=== PATIENT | female | born 1955 | race Caucasian/White ===

== ENCOUNTER → 2018-04-04 11:57 | Outpatient (CLI) | payer BC, SELFPAY ==
--- NOTE | 2018-04-04 12:05 | XR_ITS ---
EXAM: XR lumbar spine min 4V HISTORY: ITS.REASON: LOW BACK PAIN ORDERING PHYSICIAN: Jonny Nails MD PATIENT AGE: 62 years COMPARISON: None FINDINGS: Normal alignment. No fracture or dislocation. No lytic or blastic change. Multilevel mild degenerative disc disease is present from L1 to S1 with slight decrease in the disc spaces and minimal endplate osteophytes. Mild facet arthritic changes are present at L4-L5 and L5-S1 with mild facet sclerosis. IMPRESSION: Mild lumbar spondylosis with degenerative disc disease and facet arthritic change
== END ==
PROVIDERS: PCP Family Medicine; Visit Provider Family Medicine
DX: M54.5 Low back pain (principal)
CPT/HCPCS: 72110

== ENCOUNTER → 2020-05-19 12:05 | Outpatient (CLI) | payer BC, SELFPAY ==
[2020-05-20 17:01] LABS: Fats, Neutral Normal (.); Fats, Total Normal (.)
[2020-05-26 17:08] LABS: Pancreatic Elastase, Fecal >500 (>200)
== END ==
PROVIDERS: Visit Provider Nurse Practitioner Family
DX: R10.13 Epigastric pain (principal); R14.0 Abdominal distension (gaseous); K30 Functional dyspepsia; R63.4 Abnormal weight loss; R19.4 Change in bowel habit
CPT/HCPCS: 82656; 82705

== ENCOUNTER → 2020-06-30 12:47 | Outpatient (CLI) | payer MEDICARE, SELFPAY ==
--- NOTE | 2020-06-30 12:58 | XR_ITS ---
PROCEDURE: XR SHOULDER LT MIN 2V CLINICAL INDICATION: LT SHOULDER PAIN COMPARISON: No exams were available for comparison FINDINGS: No fracture or dislocation. No lytic or blastic change. There is normal mineralization. Minimal osteoarthritic change glenohumeral joint. No significant subacromial stenosis. Other findings:Small subcortical cyst at the base of the greater tuberosity IMPRESSION: Minimal osteoarthritic change Dictated by: John Fung MD 06/30/2020 16:27 John Fung MD in [place] 06/30/2020 16:27
== END ==
PROVIDERS: PCP Family Medicine; Visit Provider Family Medicine
DX: M25.512 Pain in left shoulder (principal)
CPT/HCPCS: 73030

== ENCOUNTER 2021-02-19 15:09 | Emergency (ER) | payer MEDICARE, SELFPAY ==
[2021-02-19] VITALS (11 sets, daily range): BP systolic 127–168; BP diastolic 62–84; PULSE 69–96; RESP 12–21; TEMP 36.8–37.1; O2SAT 97–100; BMI 20.5
--- NOTE | 2021-02-19 15:03 | ECG_ITS ---
APPROVED REPORT Exam: Resting ECG HR:81 bpm ECG Measurements Heart Rate 81 AXES RI 142 P 76 QRSd 76 QRS 36 QT 364 T 64 QTc 422 Conclusion Sinus rhythm with fusion complexes Left atrial abnormality ST abnormality, ? electrolyte issues Abnormal ECG Electronically signed by : Eliseo Nelson MD 02/20/2021 09:12:29
--- NOTE | 2021-02-19 15:19 | XR_ITS ---
PROCEDURE: XR CHEST 2V CLINICAL HISTORY: chest pain COMPARISON: No exams were available for comparison FINDINGS: The cardiomediastinal silhouette and pulmonary vascularity are within normal limits. The lungs are clear without infiltrates, suspicious nodules, or pleural effusions. There is mild wedging involving the T5 vertebral body age indeterminate with loss of height anteriorly of 30 percent. IMPRESSION: Mild wedging of T5 age indeterminate otherwise negative Dictated by: John Fung MD 02/19/2021 16:25 John Fung MD in [place] 02/19/2021 16:25
[2021-02-19 15:28] LABS: Basophils % 0.7 % (0.1-2.0); Eosinophils # 0.1 K/mm3 (0.0-0.4); Hematocrit 44.2 % (37.0-47.0); Hemoglobin 14.3 g/dL (12.2-16.2); Lymphocytes # 1.7 K/mm3 (0.7-4.5); Lymphocytes % 28.2 % (10-50); Mean Corpuscular HGB Conc 32.3 g/dL (31.8-35.4); Mean Corpuscular Hemoglobin 29.2 pg (27.0-31.2); Mean Corpuscular Volume 90.6 fl (81-99); Mean Platelet Volume 7.7 fl (7.4-10.4); Monocytes # 0.3 K/mm3 (0.1-1.0); Monocytes % 4.6 % (1.7-9.3); Neutrophils % 65.6 % (37.0-80.0); Platelet Count 260 K/mm3 (142-424); Red Blood Count 4.88 M/mm3 (4.20-5.40); Red Cell Distribution Width 12.8 % (11.5-17.5); White Blood Count 6.1 K/mm3 (4.8-10.8)
[2021-02-19 15:39] LABS: Anion Gap 14.4 mEq/L (5-15); Blood Urea Nitrogen 10 mg/dl (7-17); Calcium 9.5 mg/dl (8.4-10.2); Carbon Dioxide 28 mmol/L (22.0-30.0); Chloride 103 mmol/L (98-107); Creatinine Clearance Estimated 48 mL/min (50-200); Estimated Glomerular Filt Rate 124 ml/min (>60); GFR (African American) 150 ML/MIN (>60); Glucose 108 mg/dl (74-100); Potassium 3.4 mmoL/L (3.5-5.1); Sodium 142 mmol/L (136-145)
[2021-02-19 15:53] LABS: Troponin I < 0.01 ng/ml (0.00-0.034)
[2021-02-19 16:13] LABS: D-Dimer 0.42 ug/mL (0.0-0.5)
[2021-02-19 19:25] LABS: Troponin I < 0.01 ng/ml (0.00-0.034)
--- NOTE | 2021-02-19 20:04 | HMH.EDGENADL ---
ED Disposition Clinical Impression: Tachycardia Disposition: Home, Self-Care Condition on Discharge: Good Additional Instructions: If your condition worsens or any other concerning symptoms arise, please return to the emergency department. Otherwise, follow-up with your primary care doctor regarding any further testing as we discussed. Referrals: Jonny Nails MD [Primary Care Provider] - - Critical Care Critical Care Time: No Attestation: On 02/19/21, the high probability of a clinically significant, sudden or life threatening deterioration of the following system(s) required my full and direct attention, intervention and personal management. The time I documented below is in addition to time spent performing reported procedures but includes the following listed in this critical care notation. Medical Decision Making - Medical Records Medical records reviewed: Yes: I reviewed the patient's medical records. - Ac Inquiry Pt receiving controlled substance: No Vital Signs: 02/19/21 15:11 02/19/21 15:30 02/19/21 16:00 Temperature 98.7 F Temperature Source Oral Pulse Rate 85 70 Pulse Rate [Right Radial] 96 H Respiratory Rate 17 14 21 Blood Pressure 144/79 H 149/84 H Blood Pressure [Right Arm] 168/76 H Blood Pressure Mean 100 105 Blood Pressure Mean [Right Arm] 106 Blood Pressure Source Blood Pressure Source [Right Arm] Automatic Cuff Blood Pressure Position Blood Pressure Position [Right Arm] Supine 02 Sat by Pulse Oximetry 99 98 99 Oxygen Delivery Method Room Air 02/19/21 16:30 02/19/21 17:00 02/19/21 17:30 Temperature Temperature Source Pulse Rate 76 70 81 Pulse Rate [Right Radial] Respiratory Rate 14 14 15 Blood Pressure 135/70 160/77 H 145/75 H Blood Pressure [Right Arm] Blood Pressure Mean 97 104 98 Blood Pressure Mean [Right Arm] Blood Pressure Source Blood Pressure Source [Right Arm] Blood Pressure Position Blood Pressure Position [Right Arm] 02 Sat by Pulse Oximetry 100 100 97 Oxygen Delivery Method 02/19/21 18:00 02/19/21 18:31 02/19/21 19:00 Temperature Temperature Source Pulse Rate 87 90 89 Pulse Rate [Right Radial] Respiratory Rate 12 18 13 Blood Pressure 137/72 149/82 H 146/72 H Blood Pressure [Right Arm] Blood Pressure Mean 94 104 101 Blood Pressure Mean [Right Arm] Blood Pressure Source Blood Pressure Source [Right Arm] Blood Pressure Position Blood Pressure Position [Right Arm] 02 Sat by Pulse Oximetry 98 98 98 Oxygen Delivery Method 02/19/21 20:08 02/19/21 20:14 Temperature 98.5 F 98.2 F Temperature Source Oral Pulse Rate 86 69 Pulse Rate [Right Radial] Respiratory Rate 16 18 Blood Pressure 127/62 127/62 Blood Pressure [Right Arm] Blood Pressure Mean Blood Pressure Mean [Right Arm] Blood Pressure Source Automatic Cuff Blood Pressure Source [Right Arm] Blood Pressure Position Sitting Blood Pressure Position [Right Arm] 02 Sat by Pulse Oximetry Oxygen Delivery Method Room Air Room Air - Lab Data Lab results reviewed: Yes: I reviewed the patient's lab results. Lab Results 02/19/21 15:10: WBC 6.1, RBC 4.88, Hgb 14.3, Hct 44.2, MCV 90.6, MCH 29.2, MCHC 32.3, RDW 12.8, Plt Count 260, MPV 7.7, Neut % (Auto) 65.6, Lymph % (Auto) 28.2, [place] % (Auto) 4.6, Eos % (Auto) 1.0, Baso % (Auto) 0.7, Neut # (Auto) 4.0, Lymph # (Auto) 1.7, [place] # (Auto) 0.3, Eos # (Auto) 0.1, Baso # (Auto) 0.0 02/19/21 15:10: Sodium 142, Potassium 3.4 L, Chloride 103, Carbon Dioxide 28, Anion Gap 14.4, BUN 10, Creatinine 0.50 L, Estimated Creat Clear 48, Estimated GFR 124, Est GFR ( Amer) 150, Glucose 108 H, Calcium 9.5, Troponin I < 0.01 02/19/21 15:10: D-Dimer 0.42 02/19/21 18:45: Troponin I < 0.01 Result diagrams: 02/19/21 15:10 02/19/21 15:10 Orders (Tests/Meds): ED MEDICATIONS Discontinued Medications Generic Name Dose Route Start Last Admin Trade Name Freq PRN
== END 2021-02-19 20:16 | disposition home or self-care (01) ==
PROVIDERS: Emergency Provider Emergency Medicine; PCP Family Medicine
DX: R00.0 Tachycardia, unspecified (principal); R07.9 Chest pain, unspecified; F41.8 Other specified anxiety disorders
CPT/HCPCS: 36415; 71046; 80048; 84484; 85025; 85378; 93005; 99283

== ENCOUNTER → 2022-01-18 16:25 | Outpatient (CLI) | payer MEDICARE, SELFPAY ==
--- NOTE | 2022-01-18 16:29 | XR_ITS ---
PROCEDURE INFORMATION: Exam: XR Chest Exam date and time: 01/18/2022 4:32 PM Age: 66 years old Clinical indication: Cough; Additional info: Weight loss TECHNIQUE: Imaging protocol: Radiologic exam of the chest. Views: 2 views. COMPARISON: CR XR CHEST 2V 02/19/2021 3:41 PM FINDINGS: Lungs: Hyperexpansion and hyperlucency with mild diaphragmatic flattening suggesting COPD. Granulomatous calcifications in the AP window. Pulmonary vasculature grossly normal. No gross pulmonary infiltrates or edema pattern. Pleural spaces: No pleural effusion. No pneumothorax. Heart/Mediastinum: Heart size normal. No tracheal/mediastinal shift. Bones/joints: No acute osseous abnormalities are identified. Osteopenia. Chronic mild-moderate superior endplate compression deformity T5 unchanged. Chronic mild superior endplate compression deformity of T6 and T3 unchanged. IMPRESSION: 1. No acute thoracic process. 2. COPD.
== END ==
PROVIDERS: PCP Family Medicine; Visit Provider Family Medicine
DX: R63.4 Abnormal weight loss (principal)
CPT/HCPCS: 71046

== ENCOUNTER → 2022-02-04 11:54 | Outpatient (CLI) | payer MEDICARE, SELFPAY ==
[2022-02-09 03:58] LABS: Pancreatic Elastase, Fecal 500 (>200)
[2022-02-09 15:24] LABS: Fats, Neutral Normal (.); Fats, Total Increased (.)
== END ==
PROVIDERS: PCP Family Medicine; Visit Provider Nurse Practitioner Family
DX: R10.13 Epigastric pain (principal); R19.4 Change in bowel habit; R63.4 Abnormal weight loss
CPT/HCPCS: 82656; 82705

== ENCOUNTER → 2022-02-25 15:22 | Outpatient (CLI) | payer MEDICARE, SELFPAY ==
[2022-02-25 15:57] LABS: Basophils # 0.1 K/mm3 (0-0.2); Basophils % 0.8 % (0.1-2.0); Eosinophils % 0.4 % (0.1-12.0); Hematocrit 42.9 % (37.0-47.0); Hemoglobin 14.1 g/dL (12.2-16.2); Lymphocytes # 1.7 K/mm3 (0.7-4.5); Lymphocytes % 26.2 % (10-50); Mean Corpuscular Hemoglobin 28.8 pg (27.0-31.2); Mean Corpuscular Volume 87.5 fl (81-99); Mean Platelet Volume 7.8 fl (7.4-10.4); Monocytes # 0.3 K/mm3 (0.1-1.0); Monocytes % 4.4 % (1.7-9.3); Neutrophils # 4.4 K/mm3 (1.8-7.8); Neutrophils % 68.2 % (37.0-80.0); Platelet Count 312 K/mm3 (142-424); Red Cell Distribution Width 12.7 % (11.5-17.5); White Blood Count 6.4 K/mm3 (4.8-10.8)
[2022-02-25 16:04] LABS: Ammonia < 9 umol/L (9-30)
[2022-02-25 16:15] LABS: INR 1.02 (0.9-1.1)
[2022-02-25 16:41] LABS: Alanine Aminotransferase 20 U/L (12-78); Albumin Level 4.5 g/dl (3.5-5.0); Albumin/Globulin Ratio 1.8 (1.1-1.8); Alkaline Phosphatase 65 U/L (38-126); Anion Gap 14.4 mEq/L (5-15); Aspartate Amino Transferase 31 U/L (14-36); Bilirubin,Total 0.4 mg/dl (0.2-1.3); Blood Urea Nitrogen 10 mg/dl (7-17); Calcium 9.4 mg/dl (8.4-10.2); Carbon Dioxide 27 mmol/L (22.0-30.0); Chloride 104 mmol/L (98-107); Estimated Glomerular Filt Rate 100 ml/min (>60); GFR (African American) 121 ML/MIN (>60); Globulin 2.5 g/dL (1.3-3.2); Glucose 100 mg/dl (74-100); Potassium 3.4 mmoL/L (3.5-5.1); Sodium 142 mmol/L (136-145)
[2022-02-25 17:17] LABS: Iron 79 ug/dL (37-170)
[2022-02-25 17:27] LABS: Total Iron Binding Capacity 305 ug/dL (265-497)
[2022-02-25 17:54] LABS: Ferritin 22.5 ng/ml (11.1-264)
[2022-02-27 08:10] LABS: AFP, Tumor Marker 5.9 ng/mL (0.0-9.2)
== END ==
PROVIDERS: PCP Family Medicine; Visit Provider Internal Medicine Gastroenterology
DX: R10.13 Epigastric pain (principal); R63.4 Abnormal weight loss; R63.0 Anorexia; K74.00 Hepatic fibrosis, unspecified
CPT/HCPCS: 36415; 80053; 82105; 82140; 82728; 83540; 83550; 85025; 85610

== ENCOUNTER → 2022-08-08 10:30 | Outpatient (CLI) | payer MEDICARE, SELFPAY | PROVIDERS: PCP Family Medicine; Visit Provider Family Medicine | DX: R63.4 Abnormal weight loss (principal) | CPT/HCPCS: 87177 ==

== ENCOUNTER → 2022-12-27 14:30 | Outpatient (CLI) | payer MEDICARE, SELFPAY ==
--- NOTE | 2022-12-27 | US_ITS ---
FINAL REPORT CLINICAL HISTORY: RUQ PAIN FINDINGS: Sonographic images of the abdomen were obtained. The liver has an unremarkable appearance with normal echogenicity. A gallstone is identified in the [place] cap of the gallbladder. There is no evidence of biliary ductal dilatation. The common duct measures 2 mm, which is within normal limits. Limited images of the pancreas are unremarkable. The spleen size is normal. The right kidney measures 10 cm in length. The left kidney measures 10 cm in length. There is normal renal echogenicity. There is no evidence of hydronephrosis. The aorta has an unremarkable appearance. Limited images of the inferior vena cava are unremarkable. IMPRESSION: Gallstone in the [place] cap of the gallbladder. Reviewed, Interpreted and Dictated by Christopher Hunt MD Transcribed by Shawnee Peña Authenticated and [facility]
[2022-12-28 08:07] LABS: Basophils % 0.3 % (0.1-2.0); Eosinophils # 0.1 K/mm3 (0.0-0.4); Eosinophils % 0.8 % (0.1-12.0); Hematocrit 35.9 % (37.0-47.0); Hemoglobin 11.2 g/dL (12.2-16.2); Lymphocytes # 1.1 K/mm3 (0.7-4.5); Lymphocytes % 15.4 % (10-50); Mean Corpuscular HGB Conc 31.3 g/dL (31.8-35.4); Mean Corpuscular Hemoglobin 30.1 pg (27.0-31.2); Mean Corpuscular Volume 96.1 fl (81-99); Mean Platelet Volume 10.4 fl (7.4-10.4); Monocytes # 0.4 K/mm3 (0.1-1.0); Monocytes % 4.9 % (1.7-9.3); Neutrophils # 5.8 K/mm3 (1.8-7.8); Neutrophils % 78.6 % (37.0-80.0); Platelet Count 306 K/mm3 (142-424); Red Blood Count 3.73 M/mm3 (4.20-5.40); Red Cell Distribution Width 14.3 % (11.5-17.5); White Blood Count 7.3 K/mm3 (4.8-10.8)
== END ==
PROVIDERS: PCP Family Medicine; Visit Provider Family Medicine
DX: D50.9 Iron deficiency anemia, unspecified (principal); R10.11 Right upper quadrant pain
CPT/HCPCS: 36415; 76700; 85025

== ENCOUNTER → 2023-02-17 12:01 | Outpatient (CLI) | payer MEDICARE, SELFPAY ==
[2023-02-17 13:06] LABS: Occult Blood,Stool Negative (Negative)
== END ==
PROVIDERS: PCP Family Medicine; Visit Provider Internal Medicine Gastroenterology
DX: K92.2 Gastrointestinal hemorrhage, unspecified (principal); K91.89 Other postprocedural complications and disorders of digestive system
CPT/HCPCS: 82272; G0328

== ENCOUNTER 2024-02-19 13:26 | Outpatient (CLI) | payer MEDICARE, SELFPAY ==
[2024-02-19 14:23] LABS: Basophils # 0.1 K/mm3 (0-0.2); Basophils % 1.7 % (0.1-2.0); Eosinophils # 0.1 K/mm3 (0.0-0.4); Eosinophils % 1.9 % (0.1-12.0); Hemoglobin 14.7 g/dL (12.2-16.2); Lymphocytes % 18.5 % (10-50); Mean Corpuscular HGB Conc 32.7 g/dL (31.8-35.4); Mean Corpuscular Hemoglobin 29.1 pg (27.0-31.2); Mean Platelet Volume 7.3 fl (7.4-10.4); Monocytes # 0.3 K/mm3 (0.1-1.0); Monocytes % 5.4 % (1.7-9.3); Neutrophils % 72.4 % (37.0-80.0); Platelet Count 211 K/mm3 (142-424); Red Blood Count 5.06 M/mm3 (4.20-5.40); Red Cell Distribution Width 12.9 % (11.5-17.5); White Blood Count 5.6 K/mm3 (4.8-10.8)
[2024-02-19 16:25] LABS: Total Iron Binding Capacity 278 ug/dL (265-497)
[2024-02-19 16:53] LABS: Ferritin 23.7 ng/ml (11.1-264)
[2024-02-19 22:38] LABS: Iron 88 ug/dL (37-170)
== END 2024-02-19 23:59 | disposition home or self-care (01) ==
LOC: LAB 13:28
PROVIDERS: PCP Family Medicine; Visit Provider Internal Medicine Gastroenterology
DX: D64.9 Anemia, unspecified (principal); D50.9 Iron deficiency anemia, unspecified; B19.20 Unspecified viral hepatitis C without hepatic coma
CPT/HCPCS: 36415; 82728; 83540; 83550; 85025

== ENCOUNTER 2024-03-06 14:44 | Outpatient (CLI) | payer MEDICARE, SELFPAY ==
--- NOTE | 2024-03-06 14:48 | XR_ITS ---
FINAL REPORT TECHNIQUE: Bone densitometry calculations of the lumbar spine and left hip were obtained. CLINICAL HISTORY: post menopausal COMPARISON: None FINDINGS: Using L1-4, the bone mineral density of the spine is 1.053 g/cm2, corresponding to T-score of 0.1. Using the left hip, the bone mineral density of the femoral neck is 0.555 g/cm2, corresponding to a T-score of -2.6. Using the right hip, the bone mineral density of the femoral neck is 0.640 g/cm?, corresponding to a T-score of -1.9. NOTE: T-score: Standard deviation compared with peak bone mass of young adult mean. *Following the recommendations of the International Society of Bone Densitometry, classification of hip BMD is based on the lower of two T-scores; total hip or femoral neck. IMPRESSION: Osteoporosis: Lowest T-score is at or below -2.5. This patient's T-score meets the World Health Organization criteria for osteoporosis. The T-score of the lumbar spine is within normal limits, however this may be falsely elevated by changes of bony sclerosis. Reviewed, Interpreted and Dictated by Antony Iglesias III, MD Transcribed by Rukhsana Álvarez Authenticated and . [facility]
== END 2024-03-06 23:59 | disposition home or self-care (01) ==
LOC: RAD 14:45
PROVIDERS: PCP Family Medicine; Visit Provider Family Medicine
DX: M81.0 Age-related osteoporosis without current pathological fracture (principal); Z13.820 Encounter for screening for osteoporosis
CPT/HCPCS: 77080

== ENCOUNTER 2024-08-09 13:21 | Outpatient (CLI) | payer MEDICARE, SELFPAY ==
--- OUTSIDE RECORDS SUMMARY | 2024-08-09 13:23 | XMS_ITS ---
Laboratory report Created on: July 31, 2024 JIMMY MACKEY : 1955 Sex: Female Author Name SUNNY COREAS Organization Unknown PROBLEMS Problems List Code Description R53.82 RESULTS Laboratory Orders Date Order Code Test 2024-07-24 [id number] CMP14+FE+CBC/D/P LT+TIBC+ANDIE... Laboratory Results Date LOINC Test Value Unit Reference Range Interpre tation 2024-07-24 2345-7 GLUCOSE 83 MG/DL 70-99 2024-07-24 3094-0 BUN 13 MG/DL 8-27 2024-07-24 2160-0 CREATININE .68 MG/DL 0.57-1.00 2024-07-24 73889-8 EGFR 94 ML/MIN/1.73 >59 2024-07-24 3097-3 BUN/CREATININE RATIO 19 12-2024-07-24 2951-2 SODIUM 144 MMOL/L 953-503 3244-03-26 2823-3 POTASSIUM 4.1 MMOL/L 3.5-5.2 2024-07-24 2075-0 CHLORIDE 103 MMOL/L 96-106 2024-07-24 2028-9 CARBON DIOXIDE, TOTAL 26 MMOL/L 20-29 2024-07-24 28035-7 CALCIUM 9.5 MG/DL 8.7-10.3 2024-07-24 2885-2 PROTEIN, TOTAL 6.9 G/DL 6.0-8.5 2024-07-24 1751-7 ALBUMIN 4.5 G/DL 3.9-4.9 2024-07-24 82579-3 GLOBULIN, TOTAL 2.4 G/DL 1.5-4.5 2024-07-24 1975-2 BILIRUBIN, TOTAL .3 MG/DL 0.0-1.2 2024-07-24 6768-6 ALKALINE PHOSPHATASE 71 IU/L 44-121 2024-07-24 1920-8 AST (SGOT) 25 IU/L 0-40 2024-07-24 1742-6 ALT (SGPT) 19 IU/L 0-32 2024-07-24 2500-7 IRON BINDCAP(TIBC) 251 UG/DL 504-024 3102-03-26 2501-5 UIBC 162 UG/DL 793-303 0312-03-26 2498-4 IRON 89 UG/DL 27-139 2024-07-24 2502-3 IRON SATURATION 35 % 15-55 2024-07-24 2132-9 VITAMIN B12 639 PG/ML 232-1245 2024-07-24 2284-8 FOLATE (FOLIC ACID), SERUM 16.5 NG/ML >3.0 2024-07-24 2276-4 FERRITIN 54 NG/ML 15-150 2024-07-24 6690-2 WBC 6.8 X10E3/UL 3.4-10.8 2024-07-24 789-8 RBC 4.78 X10E6/UL 3.77-5.28 2024-07-24 718-7 HEMOGLOBIN 13.6 G/DL 11.1-15.9 2024-07-24 4544-3 HEMATOCRIT 41.5 % 34.0-46.6 2024-07-24 787-2 MCV 87 FL 79-97 2024-07-24 785-6 MCH 28.5 PG 26.6-33.0 2024-07-24 786-4 MCHC 32.8 G/DL 31.5-35.7 2024-07-24 788-0 RDW 12 % 11.7-15.4 2024-07-24 777-3 PLATELETS 258 X10E3/UL 193-022 0737-03-26 770-8 NEUTROPHILS 69 % 2024-07-24 736-9 LYMPHS 24 % 2024-07-24 5905-5 MONOCYTES 6 % 2024-07-24 713-8 EOS 1 % 2024-07-24 706-2 BASOS 0 % 2024-07-24 751-8 NEUTROPHILS (ABSOLUTE) 4.6 X10E3/UL 1.4-7.0 2024-07-24 731-0 LYMPHS (ABSOLUTE) 1.6 X10E3/UL 0.7-3.1 2024-07-24 742-7 MONOCYTES(ABSOLUTE) .4 X10E3/UL 0.1-0.9 2024-07-24 711-2 EOS (ABSOLUTE) .1 X10E3/UL 0.0-0.4 2024-07-24 704-7 BASO (ABSOLUTE) 0 X10E3/UL 0.0-0.2 2024-07-24 15322-3 IMMATURE GRANULOCYTES 0 % 2024-07-24 00697-8 IMMATURE GRANS (ABS) 0 X10E3/UL 0.0-0.1
--- OUTSIDE RECORDS SUMMARY | 2024-08-09 13:23 | XMS_ITS ---
Laboratory report Created on: July 27, 2024 JIMMY MACKEY : 1955 Sex: Female Author Name SUNNY COREAS Organization Unknown PROBLEMS Problems List Code Description R53.82 RESULTS Laboratory Orders Date Order Code Test 2024-07-24 [id number] CMP14+FE+CBC/D/P LT+TIBC+ANDIE... Laboratory Results Date LOINC Test Value Unit Reference Range Interpre tation 2024-07-24 2345-7 GLUCOSE 83 MG/DL 70-99 2024-07-24 3094-0 BUN 13 MG/DL 8-2024-07-24 2160-0 CREATININE .68 MG/DL 0.57-1.00 2024-07-24 92368-7 EGFR 94 ML/MIN/1.73 >59 2024-07-24 3097-3 BUN/CREATININE RATIO 19 -2024-07-24 2951-2 SODIUM 144 MMOL/L 578-494 1660-03-26 2823-3 POTASSIUM 4.1 MMOL/L 3.5-5.2 2024-07-24 2075-0 CHLORIDE 103 MMOL/L 96-106 2024-07-24 2028-9 CARBON DIOXIDE, TOTAL 26 MMOL/L 20-29 2024-07-24 96724-0 CALCIUM 9.5 MG/DL 8.7-10.3 2024-07-24 2885-2 PROTEIN, TOTAL 6.9 G/DL 6.0-8.5 2024-07-24 1751-7 ALBUMIN 4.5 G/DL 3.9-4.9 2024-07-24 25851-1 GLOBULIN, TOTAL 2.4 G/DL 1.5-4.5 2024-07-24 1975-2 BILIRUBIN, TOTAL .3 MG/DL 0.0-1.2 2024-07-24 6768-6 ALKALINE PHOSPHATASE 71 IU/L 44-121 2024-07-24 1920-8 AST (SGOT) 25 IU/L 0-40 2024-07-24 1742-6 ALT (SGPT) 19 IU/L 0-32 2024-07-24 2500-7 IRON BINDCAP(TIBC) 251 UG/DL 533-085 1808-03-26 2501-5 UIBC 162 UG/DL 624-661 7423-03-26 2498-4 IRON 89 UG/DL 27-139 2024-07-24 2502-3 [...] % 11.7-15.4 2024-07-24 777-3 PLATELETS 258 X10E3/UL 757-797 7737-03-26 770-8 NEUTROPHILS 69 % 2024-07-24 736-9 LYMPHS 24 % 2024-07-24 5905-5 MONOCYTES 6 % 2024-07-24 713-8 EOS 1 % 2024-07-24 706-2 BASOS 0 % 2024-07-24 751-8 NEUTROPHILS (ABSOLUTE) 4.6 X10E3/UL 1.4-7.0 2024-07-24 731-0 LYMPHS (ABSOLUTE) 1.6 X10E3/UL 0.7-3.1 2024-07-24 742-7 MONOCYTES(ABSOLUTE) .4 X10E3/UL 0.1-0.9 2024-07-24 711-2 EOS (ABSOLUTE) .1 X10E3/UL 0.0-0.4 2024-07-24 704-7 BASO (ABSOLUTE) 0 X10E3/UL 0.0-0.2 2024-07-24 55680-1 IMMATURE GRANULOCYTES 0 % 2024-07-24 80231-4 IMMATURE GRANS (ABS) 0 X10E3/UL 0.0-0.1
--- OUTSIDE RECORDS SUMMARY | 2024-08-09 13:23 | XMS_ITS | Data Portability ---
Author Organization [facility] BO JaegerS SUCHES CLOSED Address [address] [place] [address] Care Team Providers Care Senior Behavioral Scientist Name Role Phone RICHIE NAILS Referring Provider Assessment No assessment recorded. Plan of Treatment Reminders Order Date Submit Date Provider Last Modified By Organization Details Last Modified Time Details Appointments None recorded. Lab pancreatic elastase, stool 2022 023 [email or web address] [facility], [address] [place] [address], [id number], 3 07:52:51 amylase, serum or plasma 2022 023 [facility], [address] [place] [address], [id number], 3 12:55:20 lipase, serum or plasma 2022 023 [facility], [address] [place] [address], [id number], 3 12:55:19 vitamin B12, serum 2022 023 [facility], [address] [place] [address], [address], 3 16:21:11 vitamin D, 25-hydroxy, total, serum 2022 023 [facility], [address] [place] [address], [address], 3 16:21:10 CK (creatine kinase), total, serum 2022 023 [facility], [address] [place] [address], [address], 3 16:11:36 ESR (erythrocyt e sedimentati on rate), blood 2022 023 [facility], [address] [place] [address], [id number], 3 16:29:50 CBC w/ auto diff 2022 023 [facility], [address] [place] [address], [address], 3 15:46:03 CMP, serum or plasma 2022 023 [facility], [address] [place] [address], [address], 3 16:11:39 lipase, serum or plasma 2022 023 [facility], [address] [place] [address], [address], 3 16:11:38 TSH, serum or plasma 2022 023 [facility], [address] [place] [address], [address], 3 16:45:03 T4, free, serum 2022 023 [facility], [address] [place] [address], [id number], 3 16:45:05 T3, total, serum 2022 023 [facility], [address] [place] [address], [address], 3 16:45:07 thyroid panel, serum 2022 023 [facility], [address] [place] [address], [address], 3 11:40:31 Referral None recorded. Procedures None recorded. Surgeries None recorded. Imaging US, abdomen, limited 2022 023 [facility], [address] [place] [address], [address], 3 13:53:12 Medication Orders duloxetine 30 mg capsule,del ayed release 2022 023 [facility][id number], [address], [id number], 3 11:16:03 dicyclomine 10 mg capsule 2022 023 [facility][id number], [address], [phone], 3 14:42:43 Patient TargetsNo targets recorded. Patient InstructionsNo instructions recorded. Reason for Referral None Reported. Results Created Date Observation Date Name Description Value Unit Range Abnormal Flag Note LastModifiedBy Organization Detail LastModifiedTime 10/26/1910/25/2022 COMPL ETE BLOOD COUNT white blood cells 8.8 10*3/ uL 3.8-10 .8 normal Not Available [facility] [address] [place] [address], [address], 10/25/2022 15:46:02 10/26/19 23 10/25/2022 COMPL ETE BLOOD COUNT red blood cells 5.12 10*6/ uL 3.80-5 .20 normal Not Available [facility] [address] [place] [address], [address], 10/25/2022 15:46:02 10/26/19 23 10/25/2022 COMPL ETE BLOOD COUNT hemoglobin 14.9 g/dL 12.0-1 6.0 normal Not Available [facility] [address] [place] [address], [address], 10/25/2022 15:46:02 10/26/19 23 10/25/2022 COMPL ETE BLOOD COUNT hematocrit 45.6 % 35.0-4 7.0 normal Not Available [facility] [address] [place] [address], [address], 10/25/2022 15:46:02 10/26/19 23 10/25/2022 COMPL ETE BLOOD COUNT MCV 89 fL 80-100 normal Not Available [facility] [address] [place] [address], [address], 10/25/2022 15:46:02 10/26/19 23 10/25/2022 COMPL ETE BLOOD COUNT MCH 29 pg 26-35 normal Not Available [facility] [address] [place] [address], [address], 10/25/2022 15:46:02 10/26/19 23 10/25/2022 COMPL ETE BLOOD COUNT MCHC 33 g/dL 32-36 normal Not Available [facility] [address] [place] [address], [address], 10/25/2022 15:46:02 10/26/19 23 10/25/2022 COMPL ETE BLOOD COUNT RDW 12.9 % 11.0-1 5.0 normal Not Available [facility] [address] [place] [address], [address], 10/25/2022 15:46:02 10/26/19 23 10/25/2022 COMPL ETE BLOOD COUNT MPV 8.0 fL 6.2-10 .5 normal Not Available [facility] [address] [place] [address], [address], 10/25/2022 15:46:02 10/26/19 23 10/25/2022 COMPL ETE BLOOD COUNT platelet count 278 10*3/ uL 130-40 0 normal Not Available [facility] [address] [place] [address], [address], 10/25/2022 15:46:02 10/26/19 23 10/25/2022 COMPL ETE BLOOD COUNT neutrophil,a bsolute 6.1 10*3/ uL 1.6-8. 4 normal Not Available [facility] [address] [place] [address], [address], 10/25/2022 15:46:02 10/26/19 23 10/25/2022 COMPL ETE BLOOD COUNT lymphocyte,a bsolute 2.1 10*3/ uL 0.4-5. 1 normal Not Available [facility] [address] [place] [address], [address], 10/25/2022 15:46:02 10/26/19 23 10/25/2022 COMPL ETE BLOOD COUNT monocyte,abs olute 0.5 10*3/ uL 0.0-1. 2 normal Not Available [facility] [address] [place] [address], [address], 10/25/2022 15:46:02 10/26/19 23 10/25/2022 COMPL ETE BLOOD COUNT eosinophil,a bsolute 0.1 10*3/ uL 0.0-0. 8 normal Not Available [facility] [address] [place] [address], [address], 10/25/2022 15:46:02 10/26/19 23 10/25/2022 COMPL ETE BLOOD COUNT basophil,abs olute 0.0 10*3/ uL 0.0-0. 3 normal Not Available [facility] [address] [place] [address], [address], 10/25/2022 15:46:02 10/26/19 23 10/25/2022 COMPL ETE BLOOD COUNT % neutrophils 69.3 % 42.0-7 8.0 normal Not Available [facility] [address] [place] [address], [address], 10/25/2022 15:46:02 10/26/19 23 10/25/2022 COMPL ETE BLOOD COUNT % lymphocytes 24.0 % 11.0-4 7.0 normal Not Available [facility] [address] [place] [address], [address], 10/25/2022 15:46:02 10/26/19 23 10/25/2022 COMPL ETE BLOOD COUNT % monocytes 5.3 % 0.0-11 .0 normal Not Available [facility] [address] [place] [address], [address], 10/25/2022 15:46:02 10/26/19 23 10/25/2022 COMPL ETE BLOOD COUNT % eosinophils 0.9 % 0.0-7. 0 normal Not Available [facility] [address] [place] [address], [address], 10/25/2022 15:46:02 10/26/19 23 10/25/2022 COMPL ETE BLOOD COUNT % basophils 0.5 % 0.0-3. 0 normal Not Available [facility] [address] [place] [address], [address], 10/25/2022 15:46:02 10/26/19 23 10/25/2022 COMPL ETE BLOOD COUNT nucleated red cells 0.1 % 0.0-0. 9 normal Not Available [facility] [address] [place] [address], [address], 10/25/2022 15:46:02 10/26/19 23 10/25/2022 COMPL ETE BLOOD COUNT nucleated RBCs, absolute 0.01 10*3/ uL not estab. normal Not Available [facility] [address] [place] [address], [address], 10/25/2022 15:46:02 10/26/19 23 10/25/2022 CREAT INE KINAS E creatine kinase 53 U/L 0-169 normal Not Available [facility] [address] [place] [address], [address], 10/25/2022 16:11:36 10/26/19 23 10/25/2022 LIPAS E lipase 67 U/L 13-60 high Not Available [facility] [address] [place] [address], [address], 10/25/2022 16:11:38 10/26/19 23 10/25/2022 COMP. METAB OLIC PANEL glucose 105 mg/dL 74-100 high Not Available [facility] [address] [place] [address], [address], 10/25/2022 16:11:39 10/26/19 23 10/25/2022 COMP. METAB OLIC PANEL blood urea nitrogen 14 mg/dL 6-20 normal Not Available [facility] [address] [place] [address], [address], 10/25/2022 16:11:39 10/26/19 23 10/25/2022 COMP. METAB OLIC PANEL creatinine 0.73 mg/dL 0.50-0 .95 normal Not Available [facility] [address] [place] [address], [address], 10/25/2022 16:11:39 10/26/19 23 10/25/2022 COMP. METAB OLIC PANEL BUN/creatini ne ratio 19 (calc ) 10-20 normal Not Available [facility] [address] [place] [address], [address], 10/25/2022 16:11:39 10/26/19 23 10/25/2022 COMP. METAB OLIC PANEL sodium 143 mmol/ L 136-14 5 normal Not Available [facility] [address] [place] [address], [address], 10/25/2022 16:11:39 10/26/19 23 10/25/2022 COMP. METAB OLIC PANEL potassium 4.2 mmol/ L 3.4-5. 0 normal Not Available [facility] [address] [place] [address], [address], 10/25/2022 16:11:39 10/26/19 23 10/25/2022 COMP. METAB OLIC PANEL chloride 105 mmol/ L 98-107 normal Not Available [facility] [address] [place] [address], [address], 10/25/2022 16:11:39 10/26/19 23 10/25/2022 COMP. METAB OLIC PANEL carbon dioxide 25 mmol/ L 22-31 normal Not Available [facility] [address] [place] [address], [address], 10/25/2022 16:11:39 10/26/19 23 10/25/2022 COMP. METAB OLIC PANEL anion gap 13 (calc ) 7-25 normal Not Available [facility] [address] [place] [address], [address], 10/25/2022 16:11:39 10/26/19 23 10/25/2022 COMP. METAB OLIC PANEL calcium 10.4 mg/dL 8.6-10 .2 high Not Available [facility] [address] [place] [address], [address], 10/25/2022 16:11:39 10/26/19 23 10/25/2022 COMP. METAB OLIC PANEL total protein 7.7 g/dL 6.4-8. 3 normal Not Available [facility] [address] [place] [address], [address], 10/25/2022 16:11:39 10/26/19 23 10/25/2022 COMP. METAB OLIC PANEL albumin 5.2 g/dL 3.5-5. 2 normal Not Available [facility] [address] [place] [address], [address], 10/25/2022 16:11:39 10/26/19 23 10/25/2022 COMP. METAB OLIC PANEL globulin 2.5 1.5-4. 5 normal Not Available [facility] [address] [place] [address], [address], 10/25/2022 16:11:39 10/26/19 23 10/25/2022 COMP. METAB OLIC PANEL albumin/glob ulin ratio 2.1 (calc ) 1.1-2. 5 normal Not Available [facility] [address] [place] [address], [address], 10/25/2022 16:11:39 10/26/19 23 10/25/2022 COMP. METAB OLIC PANEL bilirubin, total 0.4 mg/dL 0.1-1. 2 normal Not Available [facility] [address] [place] [address], [address], 10/25/2022 16:11:39 10/26/19 23 10/25/2022 COMP. METAB OLIC PANEL alkaline phosphatase 58 U/L 30-121 normal Not Available [facility] [address] [place] [address], [address], 10/25/2022 16:11:39 10/26/19 23 10/25/2022 COMP. METAB OLIC PANEL AST 23 U/L 0-32 normal Not Available [facility] [address] [place] [address], [address], 10/25/2022 16:11:39 10/26/19 23 10/25/2022 COMP. METAB OLIC PANEL ALT 20 U/L 0-33 normal Not Available [facility] [address] [place] [address], [address], 10/25/2022 16:11:39 10/26/19 23 10/25/2022 COMP. METAB OLIC PANEL GFR 90 >= 60 normal NOT E New calcu latio n for GFR (CKD- EPI 2020) is formu lated witho ut race adjus tment facto rs at the recom menda tion of the Natio nal Kidne y Found ation and Ameri can Socie ty of Nephr ology . This calcu latio n has not been valid ated in pregn ant women . For savannah collier nts refer to https ://nevin hansen.rosa elena newell/alek garcia s/KDO QI/gf r_cal culat orPed Not Available [facility] [address] [place] [address], [address], 10/25/2022 16:11:39 10/26/19 23 10/25/2022 VITAM IN D 25-OH vitamin D 25-oh, total 68 NG/mL >=30 NG/mL normal Not Available [facility] [address] [place] [address], [address], 10/25/2022 16:21:09 10/26/19 23 10/25/2022 VITAM IN B12 vitamin B12 1507 pg/mL 232-12 45 high Not Available [facility] [address] [place] [address], [address], 10/25/2022 16:21:11 10/26/19 23 10/25/2022 ESR, AUTOM ATED ESR, automated 3 mm 0-29 normal Not Available [facility] [address] [place] [address], [address], 10/25/2022 16:29:50 10/26/19 23 10/25/2022 TSH TSH 2.860 u[IU] /mL 0.270- 4.200 normal Not Available [facility] [address] [place] [address], [address], 10/25/2022 16:45:03 10/26/19 23 10/25/2022 T4,FR EE T4,free 1.22 NG/dL 0.93-1 .70 normal Not Available [facility] [address] [place] [address], [address], 10/25/2022 16:45:05 10/26/19 23 10/25/2022 T3, TOTAL T3, total 94 NG/dL 80-200 normal Not Available [facility] [address] [place] [address], [address], 10/25/2022 16:45:07 10/26/19 23 10/27/2022 THYRO ID ANTIB ODIES PANEL thyroid peroxidase Ab <1 IU/mL <9 normal Not Available [facility] [address] [place] [address], [address], 10/27/2022 11:40:31 10/26/19 23 10/27/2022 THYRO ID ANTIB ODIES PANEL thyroglobuli n Ab <1 IU/mL < or = 1 normal Not Available [facility] [address] [place] [address], [address], 10/27/2022 11:40:31 11/24/19 23 11/23/2022 LIPAS E lipase 56 U/L 13-60 normal Not Available [facility] [address] [place] [address], [address], 11/23/2022 12:55:19 11/24/19 23 11/23/2022 AMYLA SE amylase 86 U/L 28-100 normal Not Available [facility] [address] [place] [address], [address], 11/23/2022 12:55:20 12/06/19 23 12/10/2022 PANCR EATIC ELAST ASE pancreatic elastase >500 mcg/g normal Adult and Pedia tric Refer ence Range s for Pancr eatic Elast ase-1 : Cristiane l: >200 mcg/g Moder ate Pancr eatic Insuf ficie ncy: 100-2 00 mcg/g Sever e Pancr eatic Insuf ficie ncy: <100 mcg/g Elast ase-1 (E-1) assay resul ts are expre ssed in mcg/g , which repre sent mcg E1/g feces . It is not neces caitlin to inter rupt enzym e subst ituti on thera py. Not Available [facility] [address] [place] [address], [address], 12/10/2022 20:56:56 12/06/19 23 12/05/2022 US, abdom en, limit ed [address] [address] [address] Name: MARIANA house : [address] Orderi ng Provid er: NÉSTOR Jonny CROOKARMIDA CAI EXAM DATE: 2022 EXAM: US RIGHT UPPER QUADRA NT CLINIC AL INFORM ATION: Right upper quadra nt pain. TECHNI QUE: Multip le sonogr aphic images of the right upper quadra nt were obtain ed. COMPAR MILLER: None. FINDIN GS: LIVER: Normal in size and echoge nicity . No obviou s focal lesion . BILIAR Y SYSTEM : Gallbl adder is normal in size and wall thickn ess. No stones are seen. There is a stone in the gallbl adder. No intrah epatic biliar y dilata tion. CBD measur ement = 3 mm. Normal in size. PANCRE : Well visual ized. Normal in size and echoge nicity . No obviou s focal lesion . RIGHT KIDNEY : Length = 11 cm. No hydron ephros is, mass or stone. IMPRES JUDY: 1. Gallbl adder stone. 2. No other signif icant abnorm ality. Interp reted By: León Kimble MD Electr onical ly Signed By: León Kimble MD on 12/06/19 23 1:48 PM [facility] [address], [address], 12/08/2022 09:46:24 Result Notes None recorded. 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 Procedures Surgical History Date Name Laterality Status Provider Name and Address Organization Details Recorded Time Total Hysterectomy completed SHYLA PHILLIPS MD [address] [place] [address], [address] [place] [address], [facility] 10/25/2022 14:12:09 fixed suspension procedure of urinary bladder neck completed SHYLA PHILLIPS MD [address] [place] [address], [address] [place] [address], [facility] 10/25/2022 14:21:13 Carpal tunnel surgery completed SHYLA PHILLIPS MD [address] [place] [address], [address] [place] [address], [facility] 10/25/2022 14:12:56 Imaging Results Imaging Date Name Status LastModified by Organiz ation Details LastModified Time 12/05/2022 US, abdomen, limited completed [facility] [address], [address], 12/08/2022 09:46:24 Procedure Notes None recorded. Medical Equipment None Reported. Allergies Allergen ID Allergen Name Allergen Category Reaction Reaction Severity Criticality Documentation Date Start Date Code Code System Note Provider Name and Address Organization Details Recorded Time Duragesic medicatio n Not available Not available Not available 03/24/20162011 04438 8 RxNorm Sever ity: Sever e; Comme nt: made me loone y;Cre ated By: Karen Parker; Creat ed Date: 2011 3:07: 52 PM; [place] [address] [place] [address], [address] [place] [address] 3 14:01:19 702602 fentanyl medicatio n Not available Not available Not available 03/25/20162013 4337 RxNorm Comme nt: Creat ed By: Tung Henao;Cre ated Date: 2013 11:02 :56 AM; Not Available [facility] 6 06:21:18 [id number] Arthrotec medicatio n itching severe Not available 03/25/20162011 03837 UNK React ion: ITCHI NG;Se verit y: Sever e; Comme nt: Creat ed By: Karen Parker; Creat ed Date: 2011 3:08: 29 PM; Not Available [facility] 6 08:53:09 Medications Name Sig Start Date Stop Date Status Note LastModified by Organization Details LastModified Time Miralax 17 gram/dose oral powder daily active Not Available Not Available Not Available buspirone 5 mg tablet Take 1 tablet twice a day by oral route. 2022 active has not started it yet Not Available Not Available Not Available Multiple Vitamin capsule Daily 11/23 completed Duration : 30 days;Bran quency: daily;Me dication Descript ion: multivit dickerson; Dosage:1 ; Route:or al; refills: 3; Quantity :100 capsule Not Available Not Available Not Available promethaz ine 12.5 mg tablet Take 1 tablet as needed by oral route. active Not Available Not Available No t Available Yudith 60 mg capsule,e xtended release Two times a day 10/25 completed Frequenc y: bid;Medi cation Descript ion: morphine ; Dosage:1 ; Route:or al; refills: 0; Quantity :60 capsule, extended release Not Available Not Available Not Available famotidin e 20 mg tablet 1 po BID prn active Not Available Not Available No t Available megestrol 40 mg tablet Take 1 tablet twice a day by oral route. 11/23 completed Not Available Not Available Not Available lisinopri l 5 mg tablet Take 1 tablet every day by oral route. active Not Available Not Available No t Available diazepam 10 mg tablet 1 po TID prn anxiety active Not Available Not Available No t Available Citrucel (sucrose) oral powder 10/25 completed Medicati on Descript ion: methylce llulose; Route:or al; refills: 0 Not Available Not Available Not Available dicyclomi ne 10 mg capsule 1 po TID prn abdomina l pain 2022 active Not Available Not Available Not Avai lable Relpax 40 mg tablet As Directed 10/25 completed Frequenc y: as direct.; Alt Frequenc y: prn;Medi cation Descript ion: eletript an; Dosage:a s directed ; Route:or al; refills: 0 Not Available Not Available Not Available Lexapro 5 mg tablet Take 1 tablet every day by oral route. 11/23 completed Not Available Not Available Not Available duloxetin e 30 mg capsule,d elayed release 1 po daily 2022 active Not Available Not Available Not Avai lable Miralax Daily 10/25 completed Instruct ions: 17gm in 8oz fluids QTY QS;Frequ ency: daily;Me dication Descript ion: polyethy jen glycol 3350; Dosage:a s directed ; Route:or al; refills: 11; Quantity :1 powder for reconsti tution Not Available Not Available Not Available multivita min 1 po daily 11/23 completed Not Available Not Available Not Available Align (B. is) 4 mg capsule Daily 10/25 completed Duration : 30 days;Bran quency: daily;Me dication Descript ion: bifidoba cterium infantis ; Dosage:1 ; Route:or al; refills: 0; Quantity :30 capsule Not Available Not Available Not Available Konsyl (sugar) daily active Not Available Not Available Not Available lactulose 10 gram/15 mL (15 mL) oral solution Two times a day 10/25 completed Frequenc y: bid;Alt Frequenc y: daily;Me dication Descript ion: lactulos e; Dosage:2 tablespo ons; Route:or al; refills: 0; Quantity :1 syrup Not Available Not Available Not Available Vitals Date Recorded Body weight Body mass index (BMI) Body height Heart rate Oxygen saturation Oxygen saturation in Arterial blood by Pulse oximetry Systolic blood pressure Diastolic blood pressure Provider Name and Address Organization Details Last Updated DateTime 3 81840.3 4 g 17 kg/m2 162.56 cm 81 /min 97 % 97 % 110 mm[Hg] 60 mm[Hg] [facility] 13:42:19 Date Recorded Respiratory rate Provider Name a nc Address Organization Details Last Updated DateTime 10/25/2022 16 /min SHYLA PHILLIPS MD [address] [place], [phone] 10/25/2022 13:58:38 Date Recorded Body height Heart rate Oxygen saturation Oxygen saturation in Arterial blood by Pulse oximetry Systolic blood pressure Diastolic blood pressure Provider Name and Address Organization Details Last Updated DateTime 3 162.56 cm 78 /min 98 % 98 % 122 mm[Hg] 70 mm[Hg] [facility] 10:23:45 Date Recorded Body mass index (BMI) Body weight Respiratory rate Provider Name and Address Organization Details Last Updated DateTime 11/23/2022 16.3 kg/m2 20621.98 g 15 /min SHYLA PHILLIPS MD [address] [place] [address], [phone] [place] [address] 11/23/2022 11:02:18 Social History Question Answer Notes LastModified by Organization Details LastModified Time Tobacco Smoking Status Never Smoker SHYLA PHILLIPS MD [address] [place] [address], [phone] [place] [address] 10/25/2022 14:09:41 What Is Your Level Of Alcohol Consumption? None Information not available 10/25/2022 Are You Currently Employed? No Retired; She Has A [employer] And Then Worked In [employer] Information not available 10/25/2022 Which Illicit Or Recreational Drugs Have You Used? Occ Marijuana Use To Stimulate Appetite Information not available 10/25/2022 What Was The Date Of Your Most Recent Tobacco Screening? 10/25/2022 Information not available 10/25/2022 How Many Children Do You Have? 1 Information not available 10/25/2022 Do You Use Any Illicit Or Recreational Drugs? Yes Information not available 10/25/2022 Sex: Unknown Functional Status None recorded. Mental Status None recorded. Family History Relationship Description Onset Age of this Age Resolved Age Notes LastModified by Organization Details LastModified Time Father Malignant tumor of stomach [email or web address] Not available 2022 14:07:03 Father Malignant tumor of colon [email or web address] Not available 2022 14:07:11 Father Cerebrovascu lar accident [email or web address] Not available 14:07:21 Father Malignant tumor of lung nshrestha Not available 2022 14:07:52 Mother Essential hypertension [email or web address] Not available 14:08:21 Maternal Grandmother Diabetes mellitus [email or web address] Not available 2022 14:08:39 Paternal Grandmother Diabetes mellitus nshrestha Not available 2022 14:08:40 Paternal Grandfather Heart disease nshrestha Not available 2022 14:08:52 Paternal Aunt Heart disease nshrestha Not available 2022 14:09:06 Paternal Uncle Heart disease nshrestha Not available 2022 14:09:11 Medical History Condition Response Other Y Depression Y Anxiety Disorder Y Arthritis Y Liver Disease Y Reflux/GERD Y Hypertension Y Gynecological HistoryNo gynecological history recorded. Obstetrics History GPAL:G 0 P 0 0 0 0 Immunizations Vaccine Type Date Status Note Provider Nam e and Address Organization Details Recorded Time influenza, unspecified formulation 01/29/2022 completed SHYLA PHILLIPS MD [address] [place] [address], [phone], [facility] 11/23/2022 10:50:12 Past Encounters Encounter ID Performer Location Encounter Start Date Encounter Closed Date Diagnosis/Indication Diagnosis SNOMED-CT Code Diagnosis ICD10 Code Diagnosis Note [id number] [place] [address] 08/01/2016 22:36:34 08/01/2016 22:36:34 [id number] SHYLA PHILLIPS MD [facility] [address] [place] [address] 10/25/2022 13:00:43 10/28/2022 04:06:37 Weight loss 08447638 R63.4 check TFTs Functional abdominal pain syndrome 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 Abd pain seems worse if she eats too much fat; schedule RUQ u/s and check pancreatic elastase and enzymes Mixed anxi ety and depressive disorder 985299156 F41.8 She was taken off of Lexapro a few weeks ago; start Duloxetine 30mg daily Health Concerns Section Related Observation LastModified by Organization Detai ls LastModified Time None Recorded Concern Status LastModified by Organization Details LastModified Time None Recorded Advance Directives Directive None Recorded Payers Encounter Date Sequence Insurance Name Policy Number Policy Lin Covered Member ID Lin Member ID Guarantor Name 10/25/2022 1 [place] Deisy S Bai [id number] Deisy S Bai 10/25/2022 2 [employer] (MEDICARE SUPPLEMENT) Deisy S Bai [id number] Deisy S Bai 11/23/2022 1 [place] Deisy S Bai [id number] Deisy S Bai 11/23/2022 2 [employer] OPT[employer] (MEDICARE SUPPLEMENT) Deisy S Bai [id number] Deisy S Bai Notes Date Note Type Note Provider Name and Address Organization Details Recorded Time 10/25/2022 text/html Here for 2nd opi nion concerning weight loss since 2019. Her physician is Dr. Nails, in [place].In 2019 she weighed about 155 lbs (for about 3 years), but her usual weight for most of her life was 120 lbs. This started after undergoing bladder sling surgery in 09/2018. Ever since then, she has had decreased appetite and has lost weight (over 50 lbs). She has had EGD/colonoscopy by Dr. Apple in 01/2022. EGD showed cricopharyngeal spasm s/p dilation, Schatzki's ring dilated to 20mm, bile reflux with linear reactive gastropathy and mild chronic gastritis. SHYLA PHILLIPS MD [address] [place] [address], [phone], [facility] 10/27/2022 12:06:39 11/23/2022 text/html She is here for follow up of chronic abdominal pain and trouble gaining weight. She was seen last month as a new patient to discuss wt loss of about 50 lbs that occurred about 4 years ago. She has had a work up by Dr. Apple that included a CT of abdomen, EGD and colonoscopy last January. I ordered labs last month and they were all unremarkable. I started Dicyclomine, which has helped with abd pain/spasm somewhat. A few weeks ago, her PCP in [place] discontinued her Lexapro and she has had increased anxiety since then. SH[facility]LA PHILL[facility] [place], [address], [facility] 11/23/2022 12:22:25 OBGyn Episode No OBEpisode recorded.
== END 2024-08-09 23:59 | disposition home or self-care (01) ==
LOC: RAD 13:22
PROVIDERS: PCP Family Medicine; Visit Provider Family Medicine
DX: Z12.31 Encounter for screening mammogram for malignant neoplasm of breast (principal)
CPT/HCPCS: 77063; 77067